=== PATIENT | female | born 1945 | race Caucasian/White ===

== ENCOUNTER → 2016-11-02 | Outpatient (CLI) | payer MEDICARE, OTHER | END | disposition home or self-care (01) | LOC: LAB.O 08:52 | PROVIDERS: ATTEND Internal Medicine | DX: M06.9 Rheumatoid arthritis, unspecified (principal) ==

== ENCOUNTER → 2017-07-16 | Outpatient (CLI) | payer MEDICARE, OTHER ==
--- NOTE | 2017-07-17 16:12 | MRI ---
EXAM DESCRIPTION: Lumbar Spine w/o Contrast MRI. CLINICAL HISTORY: LOW BACK PAIN COMPARISON: MRI right hip on the same visit. TECHNIQUE: Multiplanar, multiple standard sequences, non contrast MRI, lumbar spine. FINDINGS: L5-S1: Disc desiccation. Minimal anterior bulge. Posterior midline 7 mm herniation of the disc which is broad-based and is also extremity inferior to the disc space abutting the descending right L5 nerve in the subarticular recess. Disc is abutting the left S1 nerve above the left recess. AP canal diameter 9 mm. Minimal facet arthrosis and ligament hypertrophy. Moderate type II endplate reactive changes to the right with disc spur complex abutting the exiting right L5 nerve. Mild narrowing of the left foramen. L4-5: Disc desiccation. Posterior midline 3 mm disc bulge with bright T2-weighted signal in the annular fissure. Bilateral posterior flavum ligament hypertrophy. AP canal diameter 9 mm. Facets are negative. Bilateral mild foraminal narrowing. L3-4: Disc desiccation with anterior small bulge. Bilateral flavum ligament hypertrophy. Minimal disc bulge into the foramina. Mild bilateral foraminal narrowing. Bilateral facets are unremarkable. Mild canal narrowing. L2-3: Minimal disc desiccation. Disc space preserved with no bulging. Minimal flavum ligament hypertrophy. Canal and bilateral foramina are patent. Normal facets. Well-circumscribed bright signal T1 and T2 sequences L2 vertebral body. L1-2: Minimal disc desiccation with disc space preserved and no bulging. Minimal bilateral flavum ligament hypertrophy. No canal narrowing. Bilateral foramina are patent. T12-L1: Minimal disc desiccation with no disc space loss. No disc bulging. Conus terminates at this level. Posterior elements unremarkable. Canal and foramina are patent. Paravertebral soft tissues minimal paraspinal muscle atrophy. Inhomogeneous marrow conversion in the sacrum.. Otherwise normal marrow signal in the remaining vertebral bodies and the posterior elements. No scoliosis. Vertebral bodies are not compressed at any level. IMPRESSION: 1. Posterior midline herniation of the L5-S1 disc with inferior extrusion possibly impinging the descending right S1 nerve in the subarticular recess. Mild canal stenosis. Disc is abutting the descending left S1 nerve above the subarticular recess. Right side moderate spondylosis with disc spur complex abutting the exiting right L5 nerve in the foramen. Correlate for radiculopathy. 2. Posterior midline L4-5 disc bulge with annular fissure. Borderline to mild central canal stenosis. 3. Well-circumscribed hemangioma in the left L2 vertebral body. Electronically signed by: Troy Jackson MD 07/17/2017 4:10 PM CDT
--- NOTE | 2017-07-18 19:50 | MRI ---
MRI right hip without contrast INDICATION: Right hip and buttock pain chronic TECHNIQUE: Noncontrast MR imaging right hip standard protocol FINDINGS: Mild greater trochanteric bursitis right hip. No fracture or osteonecrosis. No end-stage osteoarthrosis. Minimal degenerative change of the pubic symphysis. No hamstring rupture or retraction. There is a small focal tear along the anterior superior labrum right hip sagittal series 501 image 7. No displaced fragment. There is tendinopathy of the gluteal tendons especially gluteus medius. There is diffuse degeneration of the superior labrum with mild adjacent edema on the coronal PD fat suppressed images as well. There is thinning of the ligamentum teres. Prominent lymph nodes bilateral obturator and external iliac chains consider CT abdomen and pelvis to exclude pathologic adenopathy IMPRESSION: Diffuse degenerative tear superior and anterior superior labrum right hip Mild right greater trochanteric bursitis and gluteal tendinopathy No fracture end-stage arthrosis or focal osteonecrosis Degenerative disc disease lower lumbar spine Lymphadenopathy involving the bilateral obturator and external iliac chains extending into the inguinal regions nonspecific in etiology consider CT abdomen and pelvis with contrast to assess for pathologic adenopathy. Electronically signed by: Wong Chang MD 07/18/2017 7:48 PM CDT
== END ==
LOC: MRI 09:00
PROVIDERS: ATTEND Family Medicine
DX: M51.27 Other intervertebral disc displacement, lumbosacral region (principal); M48.07 Spinal stenosis, lumbosacral region; M51.26 Other intervertebral disc displacement, lumbar region; M51.36 Other intervertebral disc degeneration, lumbar region; D18.09 Hemangioma of other sites; S76.011A Strain of muscle, fascia and tendon of right hip, initial encounter

== ENCOUNTER → 2017-07-26 | Outpatient (CLI) | payer MEDICARE, OTHER ==
--- NOTE | 2017-07-26 11:36 | CT ---
EXAM DESCRIPTION: CT abdomen and pelvis without and with contrast CLINICAL HISTORY: ENLARGED LYMPH NODES COMPARISON: None Available. TECHNIQUE: Spiral CT with multiplanar reformatted images. Intravenous iodinated nonionic contrast This exam was performed according to our departmental dose-optimization program, which includes automated exposure control, adjustment of the mA and/or kV according to patient size and/or use of iterative reconstruction technique. FINDINGS: Visualized lung bases are clear. Heart size is normal 9 mm indeterminate hypodense liver lesion posterior segment right lobe, hypodense on pre-, early and delayed postcontrast images. Normal contrast enhancement of hepatic and portal veins. Gallbladder is normal. No biliary duct dilation No abnormality of the spleen, pancreas, adrenal glands or kidneys No mass lesion or inflammatory process seen in the stomach, small or large intestine. Scattered diverticula descending and sigmoid colon without diverticulitis No mass or adenopathy in the omentum or small bowel mesentery There are a few enlarged lymph nodes in the left para-aortic region infrarenal and at the aortic bifurcation. The 2 largest are at the aortic bifurcation about 7 mm transverse. No adenopathy in the pelvis No acute bony abnormality. Multilevel degenerative change in the spine. No lytic or blastic bony lesion IMPRESSION: A few mildly enlarged retroperitoneal lymph nodes infrarenal left para-aortic extending from just below the renal vasculature to the aortic bifurcation. Indeterminate etiology 9 mm indeterminate liver lesion posterior segment right lobe Diverticulosis without diverticulitis Electronically signed by: Sandeep Mccartney MD 07/26/2017 11:35 AM CDT
== END ==
LOC: CT 09:30
PROVIDERS: ATTEND Family Medicine
DX: R59.9 Enlarged lymph nodes, unspecified (principal); K57.30 Diverticulosis of large intestine without perforation or abscess without bleeding; K76.9 Liver disease, unspecified

== ENCOUNTER → 2017-07-30 | Outpatient (CLI) | payer MEDICARE, OTHER ==
--- NOTE | 2017-07-30 11:25 | RAD ---
EXAM DESCRIPTION: Pelvis and right hip CLINICAL HISTORY: Hip pain COMPARISON: None TECHNIQUE: Frontal view of pelvis and additional dedicated views of right FINDINGS: Bony cortices in pelvis and both hip joints are maintained without focal dehiscence nor fracture. No bony dislocation in either hip joint. Femoral head contour is maintained without collapse nor changes of avascular necrosis in right hip. No soft tissue abnormality clearly identified around right hip joint. Nonobstructive bowel gas pattern in lower abdomen and in pelvis. IMPRESSION: No obvious bony injury in the pelvis nor in right hip joint. Electronically signed by: Dameon Madden MD 07/30/2017 11:23 AM CDT
== END | disposition home or self-care (01) ==
LOC: RAD 09:17
PROVIDERS: ATTEND Orthopaedic Surgery
DX: M25.551 Pain in right hip (principal)

== ENCOUNTER → 2017-09-10 | Outpatient (CLI) | payer MEDICARE, OTHER ==
--- NOTE | 2017-09-11 05:44 | MRI ---
EXAM DESCRIPTION: Cervical Spine CLINICAL HISTORY: M47.12 neck pain COMPARISON: MRI cervical spine from 2012 TECHNIQUE: Multiplanar T1 and T2 MRI images of the cervical spine were acquired without administration of intravenous contrast. FINDINGS: The cervical vertebral bodies demonstrate normal height and alignment. Moderate intervertebral disc space height loss C6-C7. Mild disc space height loss in the remainder of the cervical spine. Normal marrow signal. No cord signal abnormality. C2-C3: Small left paracentral disc protrusion without significant spinal canal stenosis. No significant neural foraminal stenosis. C3-C4: No significant disc bulge. No spinal canal or neural foraminal narrowing. C4-C5: No significant disc bulge. No spinal canal or neural foraminal narrowing. C5-C6: No spinal canal stenosis. Mild uncovertebral spurring contributes to mild right foraminal narrowing. No significant left foraminal stenosis. C6-C7: Left eccentric disc bulge with osteophytic spurring and ligamentous laxity contributes to moderate spinal canal stenosis. Uncovertebral spurring and facet arthropathy results in severe left and mild right foraminal stenoses. C7-T1: No significant disc bulge. No spinal canal or neural foraminal narrowing. 6 mm left thyroid nodule. No further imaging follow-up is required. The remainder of the soft tissues of the neck are unremarkable. IMPRESSION: Multilevel degenerative changes of the cervical spine most prominent at C6-C7 where there is moderate spinal canal stenosis and severe left foraminal stenosis. Electronically signed by: Jordan Velazquez MD 09/11/2017 5:43 AM CDT
== END ==
LOC: MRI 14:00
PROVIDERS: ATTEND Neurological Surgery
DX: M47.12 Other spondylosis with myelopathy, cervical region (principal)

== ENCOUNTER → 2018-10-11 | Outpatient (CLI) | payer MEDICARE, OTHER ==
--- NOTE | 2018-10-12 09:53 | CT ---
EXAM: Abdomen/Pelvis w/Contrast CLINICAL HISTORY: EPIGASTRIC PAIN COMPARISON STUDY: CT abdomen and pelvis July 26, 2017 TECHNICAL: Post contrast images were performed through the abdomen and pelvis. Sagittal and coronal reconstructions were obtained. FINDINGS: The visible portion of the chest is negative. The heart is not enlarged. The spleen, pancreas, adrenal glands, and kidneys enhance appropriately and demonstrate no acute abnormality. The gallbladder is intact and there is no evidence of biliary dilatation. A circumscribed low density is present in the posterior aspect of the right hepatic lobe measures 8 x 5 mm. This low density structure was present on the previous examination without change. There is no bowel obstruction or free air. Sigmoid colon diverticulosis is moderate. There is no acute inflammatory process. The appendix is visible and normal. The aorta, IVC and retroperitoneum are without acute abnormality. Moderate atherosclerotic calcifications are present in the nondilated aorta. Retroperitoneal lymph nodes are not pathologically enlarged and are smaller than the previous study. Structures within the pelvis are negative. Severe degenerative disc changes are present at L5-S1 and mild degenerative change at the remaining levels. IMPRESSION: 1. 8 x 5 mm posterior right hepatic low density has differential possibilities of a hemangioma, complex cyst or solid lesion of other etiologies and has not changed since July 26, 2017. 2. Retroperitoneal lymph nodes are not enlarged and are smaller than the prior study. 3. No acute intra-abdominal/pelvic abnormality. 4. Mild diverticulosis. This exam was performed according to our departmental dose-optimization program, which includes automated exposure control, adjustment of the mA and/or kV according to patient size and/or use of iterative reconstruction technique. Electronically signed by: Galo Shaikh MD 10/12/2018 9:51 AM CDT
== END ==
LOC: CT 09:30
PROVIDERS: ATTEND Internal Medicine Gastroenterology
DX: K57.30 Diverticulosis of large intestine without perforation or abscess without bleeding (principal); K76.9 Liver disease, unspecified

== ENCOUNTER → 2019-06-13 | Outpatient (CLI) | payer MEDICARE, OTHER ==
--- NOTE | 2019-06-14 19:13 | RAD ---
EXAM DESCRIPTION: Barium Enema w/Air Contrast CLINICAL HISTORY: CHANGE IN BOWEL HABIT. Narrowing of the sigmoid colon. COMPARISON: Radiograph abdomen March 2019. CT abdomen and pelvis September 2018. TECHNIQUE: Preliminary waste management engineer images. Patient supine on fluoroscopic table. Barium enema tip inserted in rectum. Air and medium barium contrast introduced into the rectum in a retrograde manner under fluoroscopic visualization. 12 fluoroscopic guided digital spot images by the radiologist. Digital, overhead tube, abdomen-pelvis images were recorded of abdomen and pelvis. The enema tip was removed and patient evacuated. Additional digital, overhead tube, abdomen-pelvis images were obtained. Total overhead images: 7. . The patient tolerated the procedure well, with no immediate complications. Fluoroscopy time was 3.5 minutes. . FINDINGS: Preliminary waste management engineer film of the abdomen shows no significant distention of the colon. Minimal fecal matter mid and distal colon air in the ascending colon and splenic flexure. Gas and fecal matter in the rectum. Minimal spondylosis at L5-S1. Overall bone density is decreased. Minimal amount of residual debris and fecal material on the study. Several diverticula in the sigmoid colon. No complications. Occasional spasm is noted. Overall caliber is slightly reduced. No prominent intrinsic mass and no stricture. Fewer diverticula in the descending colon. No complications. Overall caliber is slightly reduced. No intrinsic mass or mass effect. Overall caliber is slightly reduced in the transverse colon. No diverticula. No intrinsic mass or mass effect. The caliber of the cecum, ascending colon, and hepatic flexure is unremarkable. No diverticula. No intrinsic lesions or mass effect. Reflux into the appendix. No reflux into the terminal ileum. IMPRESSION: 1. Diverticulosis of the descending colon and sigmoid colon but no complications. 2. Occasional spasm in the sigmoid colon but no stricture. Overall caliber of the sigmoid colon, descending colon, and transverse colon is slightly decreased. Caliber of the cecum, ascending colon, and the flexures is unremarkable. The appendix was visualized. 3. No intrinsic mass or extrinsic mass effect. Sensitivity is minimally decreased by residual debris and fecal matter. Electronically signed by: Troy Jackson MD 06/14/2019 7:11 PM MICROSTRATEGY ARCHITECT
== END ==
LOC: RAD 08:43
DX: K57.30 Diverticulosis of large intestine without perforation or abscess without bleeding (principal); K63.9 Disease of intestine, unspecified

== ENCOUNTER → 2019-07-04 | Outpatient (CLI) | payer MEDICARE, OTHER | DX: K59.1 Functional diarrhea (principal); R10.31 Right lower quadrant pain; R10.32 Left lower quadrant pain ==

== ENCOUNTER → 2019-08-11 | Outpatient (CLI) | payer MEDICARE, OTHER | LOC: GMA MATASK 11:31 | PROVIDERS: ATTEND Family Medicine | DX: M06.9 Rheumatoid arthritis, unspecified (principal); I10 Essential (primary) hypertension ==

== ENCOUNTER → 2019-10-05 | Outpatient (CLI) | payer MEDICARE, OTHER | LOC: LAB.O 11:09 | PROVIDERS: ATTEND Internal Medicine | DX: M06.9 Rheumatoid arthritis, unspecified (principal); Z79.899 Other long term (current) drug therapy; R53.83 Other fatigue ==

== ENCOUNTER → 2019-10-11 | Outpatient (CLI) | payer MEDICARE, OTHER | LOC: GMA MATASK 14:32 | PROVIDERS: ATTEND Family Medicine | DX: M06.9 Rheumatoid arthritis, unspecified (principal) ==

== ENCOUNTER → 2019-12-07 | Outpatient (CLI) | payer MEDICARE, OTHER ==
--- NOTE | 2019-12-08 11:15 | CT ---
EXAM DESCRIPTION: CTA Head: Computed Tomographic Angiography. CLINICAL HISTORY: CERVICALGIA COMPARISON: CTA of the neck on the same visit. TECHNIQUE: Spiral -axial scans through the head and brain at 2.5 x 20 mm intervals, with nonionic IV contrast. Coronal and sagittal 2.0 mm reconstructions. Axial and coronal 2.0 mm MIP reconstructions. Volume rendering 3-D reconstruction on the craniocaudal axis. No adverse reactions. Total Exam DLP: 753 mGy-cm. This exam was performed according to our departmental CT dose-optimization program which includes automated exposure control, adjustment of the mA and/or kV according to patient size and/or use of iterative reconstruction technique; to reduce radiation dose to as low as reasonably achievable (ALARA). FINDINGS: No mass-effect and no midline shift. Normal contrast enhancement. Normal galeano-white matter differentiation. No abnormal radiodense material in the brain parenchyma. Physiologic calcifications in the pineal gland and choroid plexus. Pineal cyst is present posterior to the calcifications. No effacement or displacement of the ventricles, CSF spaces, or subdural spaces. Prominent cortical sulci bilaterally frontal and parietal lobes. Normal contrast enhancement. No extra axial fluid collection or hemorrhage. No gross abnormalities of the bony calvarium. Vertebral arteries are symmetric at the skull base. Origins of the PICA and AICA and superior cerebellar vessels are unremarkable. Symmetric bifurcation of the basilar artery to form the posterior cerebral arteries. Right posterior communicating artery joints the proximal right posterior cerebral artery. No stenoses, aneurysms, no mass effect or vasculitis in the posterior circulation. Bilateral internal carotid arteries appear symmetric in the skull base with no significant atherosclerotic calcification. Minimal calcification in the carotid siphon of the right ICA. Calcification also in the proximal intracranial segment. Bilateral intracranial segments bifurcate: A1 segment and M1 segment of the anterior and middle cerebral arteries are unremarkable. Posterior communication artery on the right adnexa with the right posterior cerebral artery. Left posterior communicating artery is tortuous and courses through the undersurface of the left tentorium to the left of the superior patricia. No stenosis, no aneurysms, no mass effect or vasculitis in the anterior circulation. IMPRESSION: 1. CTA of the anterior posterior circulation of the head showing no stenoses, and no aneurysms, no mass effect or vasculitis. No abnormal contrast blush in the parenchyma. 2. No mass effect or midline shift. Electronically signed by: Troy Jackson MD 12/08/2019 11:14 AM CDT
--- NOTE | 2019-12-08 11:42 | CT ---
EXAM DESCRIPTION: CTA Neck: Computed Tomography. CLINICAL HISTORY: CERVICALGIA. Tortuous vertebral arteries encroaching on the cervical spine neural foramina on recent cervical MRI scan COMPARISON: CT of the head on the same visit. MRI scan cervical spine November 27. TECHNIQUE: Spiral, axial 1.25 x 1.25 mm scans through the neck soft tissues after bolus infusion of IV contrast. 2.0 mm sagittal and coronal reconstructions. HID MIP images 0.6 mm rotating axis 3D volume rendering images 0.6 mm rotating axis . Percentage of stenosis recorded will be based upon NASCET criteria. Total Exam DLP: 392 mGy-cm. This exam was performed according to our departmental CT dose-optimization program which includes automated exposure control, adjustment of the mA and/or kV according to patient size and/or use of iterative reconstruction technique; to reduce radiation dose to as low as reasonably achievable (ALARA). FINDINGS: Calcification in the proximal left common carotid and middle segment with minimal calcification posterior to the bifurcation. Customary origins of the common carotid vessels bilaterally. Large calcification posterior to the bifurcation of the distal right CCA. 25% diameter stenosis of the proximal right ICA. No other significant calcifications. No significant stenoses, aneurysms, mass effect or vasculitis. Bilateral vertebral arteries demonstrate unremarkable origins from the bilateral subclavian arteries. Unusual tortuosity and corkscrew configuration of the left vertebral artery abutting the left C4-C5 neural foramen and the exiting left C5 nerve. Bilateral vertebral arteries are tortuous and extending into the bilateral C3-C4 neural foramina abutting the bilateral C4 nerves. The right vertebral artery is slightly larger than the left vertebral artery as vessels enter the skull base. PICA vessels originate from the distal vertebral arteries. No significant stenosis, no aneurysm formation, no mass effect or vasculitis. Emphysematous changes in the included lungs with multiple bilateral blebs in a centrilobular distribution primarily. Bilateral apical pleural thickening. 7.7 x 6.3 mm nonenhancing nodule mid left thyroid lobe peripherally. Smaller nodules in the right lobe. No enlarged lymph nodes. Airway is grossly normal from the nasopharynx through the glottis. Spondylosis at several levels of the cervical spine, more severe at C6-C7 with possible left neural foraminal stenosis. IMPRESSION: 1. No significant stenosis, no aneurysm formation, no mass effect, no vasculitis in the carotid or vertebral circulation. Approximately 25% diameter stenosis of the proximal right ICA. 2. Tortuosity of the vertebral arteries causing variable degrees of compromise of the bilateral C3-C4 and the left C4-C5 neural foramina. Advanced cervical spondylosis at C6-C7 with possible left neural foraminal stenosis. Please refer to MRI cervical spine report and images. 3. Bilateral emphysema in the included upper lobes. 4. Subcentimeter nodules in the bilateral thyroid lobe. [facility] Best Practice guidelines: Subcentimeter incidental thyroid nodule. No follow-up imaging is recommended. Reference: J Am Riddhi Radiol. 2015 May;12(2): 143-50 Electronically signed by: Troy Jackson MD 12/08/2019 11:40 AM CDT
== END ==
LOC: CT 10:30
PROVIDERS: ATTEND Family Medicine
DX: M47.892 Other spondylosis, cervical region (principal); I77.89 Other specified disorders of arteries and arterioles; J43.9 Emphysema, unspecified; E04.2 Nontoxic multinodular goiter